=== PATIENT | male | born 1940 | race Caucasian/White ===

== ENCOUNTER 2019-02-07 05:10 | Day surgery (SDC) ==
--- NOTE | 2019-01-24 08:17 | EKG Report ---
Test Performed on : 01/24/2019 08:14:30 AM Test Reason : PAT Blood Pressure : / mmHG Vent. Rate : 090 BPM Atrial Rate : 090 BPM P-R Int : 152 ms QRS Dur : 090 ms QT Int : 368 ms P-R-T Axes : 041 -46 053 degrees QTc Int : 450 ms Normal sinus rhythm. Left anterior fascicular block Moderate voltage criteria for LVH, may be normal variant Nonspecific T wave abnormality Abnormal ECG No previous ECGs available Confirmed by Victoriano Swift MD ([id number]) on 01/25/2019 7:34:12 AM
[2019-01-24 08:30] LABS: URINE SOURCE CLEAN CATCH
[2019-01-24 08:49] LABS: BASO# 0.03 X1000 (0.0-0.2); BASO% 0.6 % (0.0-0.8); EOS# 0.06 X1000 (0.0-0.7); EOS% 1.1 % (0.0-10.0); HEMATOCRIT 45.2 % (42.0-52.0); HEMOGLOBIN 15.1 g/dL (14.0-18.0); IMM GRAN# 0.03 X1000 (0.0-0.04); IMM GRAN% 0.6 % (0.0-0.5); LYMPH# 0.67 X1000 (1.2-3.4); LYMPH% 12.8 % (20.5-51.1); MCH 34.2 PG (27-31); MCHC 33.4 g/dL (33-37); MCV 102.3 FL (81-99); MONO# 0.41 X1000 (0.11-0.59); MONO% 7.8 % (1.7-9.3); MPV 10.7 FL (7.4-10.4); NEUT# 4.04 X1000 (1.4-6.5); NEUT% 77.1 % (42.2-75.2); PLT 270 X1000 (130-400); RBC 4.42 XMIL (4.7-6.1); RDW 13.5 % (11.5-14.5); WBC 5.24 X1000 (4.8-10.8)
[2019-01-24 08:59] LABS: BILIRUBIN URINE NEGATIVE (NEGATIVE); BLOOD URINE SMALL (NEGATIVE); COLOR YELLOW; GLUCOSE URINE NEGATIVE (NEGATIVE); KETONE URINE TRACE mg/dL (NEGATIVE); LEUKOCYTES URINE NEGATIVE (NEGATIVE); NITRITE URINE NEGATIVE (NEGATIVE); PH URINE 5.5; PROTEIN URINE TRACE mg/dL (NEGATIVE); TURBIDITY URINE CLEAR (CLEAR); UROBILINOGEN URINE NORMAL (NORMAL)
[2019-01-24 09:03] LABS: UR EPITHELIAL CELLS <10 /HPF (<10); URINE BACTERIA NEGATIVE /HPF; URINE RBC <10 /HPF (<10); URINE WBC <10 /HPF (<10)
[2019-01-24 09:42] LABS: AGAP 12; BUN 26 mg/dL (8-22); CALCIUM 9.3 mg/dL (8.8-10.2); CHLORIDE 107 mmol/L (98-107); COSMO 294; ESTIMATED GFR > 60; GLUCOSE 140 mg/dL (70-104); POTASSIUM 4.7 mmol/L (3.5-5.1); SODIUM 144 mmol/L (136-145); TCO2 25 mmol/L (25-35)
[2019-01-24 10:08] LABS: INR 1.14; PROTIME 14.7 Seconds (11.0-16.0); PTT 28.6 Seconds (22.3-41.8)
[2019-02-07] MEDS ORDERED: PEPCID ONE (05:41)
[2019-02-07] MEDS ORDERED: CELEBREX ONE (05:41)
[2019-02-07] MEDS ORDERED: REGLAN ONE (05:41)
[2019-02-07] MEDS ORDERED: LYRICA ONE (05:41)
[2019-02-07] MEDS ORDERED: COLACE ONE (05:41)
[2019-02-07] MEDS ORDERED: KEFZOL 1 GM/D5W 2 GM/100 ML IVPB ONE (05:42)
[2019-02-07] MEDS ORDERED: LR 1,000 ML ONE (05:42)
[2019-02-07] MEDS ORDERED: VANCOMYCIN ONE (06:30)
[2019-02-07] MEDS ORDERED: TORADOL ONE (06:30)
[2019-02-07] MEDS ORDERED: DURAMORPH ONE (06:30)
[2019-02-07] MEDS ORDERED: SENSORCAINE 0.5%-EPI 1:200,000 ONE (06:30)
[2019-02-07] MEDS ORDERED: NEOSPORIN G.U. IRRIGANT ONE (06:31)
[2019-02-07] MEDS ORDERED: EXPAREL 1.3% ONE (06:31)
[2019-02-07] MEDS ORDERED: SODIUM CHLORIDE 0.9% ONE (06:31)
[2019-02-07] MEDS ORDERED: XYLOCAINE-MPF 2% ONE (06:32)
[2019-02-07] MEDS ORDERED: DIPRIVAN 1% ONE (06:44)
[2019-02-07] MEDS ORDERED: FENTANYL ONE (07:13)
[2019-02-07] MEDS: CYKLOKAPRON 1,000 MG/NS 2,000 MG/200 ML IVPB ONE ×2 (07:15→08:36)
[2019-02-07 07:57] LABS: URINE SOURCE CATH
[2019-02-07 08:15] LABS: BILIRUBIN URINE NEGATIVE (NEGATIVE); BLOOD URINE TRACE (NEGATIVE); COLOR YELLOW; GLUCOSE URINE NEGATIVE (NEGATIVE); KETONE URINE NEGATIVE (NEGATIVE); LEUKOCYTES URINE NEGATIVE (NEGATIVE); NITRITE URINE NEGATIVE (NEGATIVE); PROTEIN URINE NEGATIVE (NEGATIVE); SP GRAVITY URINE 1.017; TURBIDITY URINE CLEAR (CLEAR); UROBILINOGEN URINE NORMAL (NORMAL)
[2019-02-07 08:16] LABS: UR EPITHELIAL CELLS <10 /HPF (<10); URINE BACTERIA NEGATIVE /HPF; URINE RBC <10 /HPF (<10); URINE WBC <10 /HPF (<10)
--- NOTE | 2019-02-07 09:13 | OPERATIVE NOTE ---
PROCEDURE DATE: 02/07/2019 PREOPERATIVE DIAGNOSIS: Degenerative arthritis left knee. POSTOPERATIVE DIAGNOSIS: Degenerative arthritis left knee. PROCEDURE: Left total knee arthroplasty with DePuy Attune size 7 posterior stabilized femur, size 7 tibial tray, a 7 mm rotating platform tibial insert, and a 41 mm medialized anatomic patella. SURGEON: Dr. Sang Landis 1ST FELT STRIP FINISHER: CÉSAR Mak who was necessary for proper retraction and manipulation of the extremity during the case. SECOND FELT STRIP FINISHER: Afshin Murphy RN. ANESTHESIA: General. IV FLUIDS: 1500 mL lactated Ringer's. ESTIMATED BLOOD LOSS: 25 mL. TOTAL TOURNIQUET TIME: 85 minutes at 300 mmHg. COMPLICATIONS: None. INDICATIONS: The patient is a pleasant 78-year-old male with a chronic history of pain and discomfort of his left knee. His pain has progressed to affect his activities of living. X-rays revealed significant degenerative osteoarthritis, and the recommendation to proceed with left total knee arthroplasty was offered. Risks and benefits of surgery were explained, including the risks of anesthesia, , bleeding, infection, failure to relieve pain, postoperative stiffness, nerve injury, blood clots, and other imponderables. All questions answered. Patient and family wished to proceed with surgery. DETAILS OF PROCEDURE: The patient was taken to the operating room and placed supine on operating table. Once adequate anesthesia was obtained, the patient's left lower extremity was subsequently prepped and draped in usual sterile fashion. Esmarch was used to exsanguinate left lower extremity. The tourniquet was inflated to 300 mmHg. A standard anterior incision made with skin knife. Medial and lateral skin envelopes were developed. Standard medial parapatellar arthrotomy was then performed. Patella fat pad was excised. Superior traction was then placed. Approximately 1 cm anterior to the PCL insertion, starting reamer was passed. Intramedullary guide with a distal femoral cutting block was pinned in position. A starting reamer was passed approximately 1 cm anterior to the PCL insertion. An intramedullary guide with a distal femoral cutting block was pinned in position. Distal femoral cut was then performed. A sizing block was placed and measured to a size 7. Corresponding pins were placed. A size 7 chamfer cutting block was placed in position. Anterior, posterior, and chamfer cuts were then made. Attention then turned to the proximal tibia where further resection of the ACL and PCL was performed. Using the extramedullary guide, the proximal tibia cutting block was pinned in position. It had good alignment confirmed with the alignment catia. The proximal tibia was then resected. Medial and lateral menisci were excised. A curved osteotome was used to remove the posterior osteophytes off the distal femur. A spacer block was then placed. It had good soft tissue balance in both flexion and extension. Attention turned back to the proximal tibia where a size 7 tibial tray appeared to be the correct size. This was pinned in position. This was followed by a central reamer and a fin punch. A box cutting guide was then placed on the distal femur. A box cut was performed. A size 7 femoral component was then placed. Two lug holes were drilled. A trial tibial insert was then placed and good soft tissue balancing. The patella was everted and resected in standard fashion. A size 41 appeared to be the correct size. Corresponding holes were drilled. The trial patella component was then placed, and had good patellofemoral tracking. The trial components were then removed. Copious irrigation was then performed with antibiotic pulsatile lavage. Vancomycin was mixed with cement on the back table. Sequential cementing was then performed first with the tibial tray and excess cement was removed with a Osteen followed by the femoral component,. Excess cement was removed with a Osteen followed by trial tibial insert in full extension. Axial loading was maintained while cement cured. The patella component was cemented in a standard fashion. Patella clamp was placed. While cement was curing, Exparel was placed in deep soft tissue, as well as the subcutaneous tissue. After cement had cured, peripheral cement was removed with a small osteotome. The 7 mm rotating platform tibial insert appeared to be the correct size. The trial insert was removed. Exparel was placed in the posterior capsule. Wound was copiously irrigated once again. A 7 mm rotating platform tibial insert was then placed. The knee was then carried through range of motion. It had good range of motion, and good soft tissue balancing, and good patellofemoral tracking. A 1/8 Hemovac drain was placed, and was not sewn in. Copious irrigation performed once again with antibiotic pulsatile lavage. #1 Vicryl was used to repair the arthrotomy followed by 2-0 Vicryl for repair to subcutaneous tissue and skin arthur. Adaptic, sterile 4 x 4's, Webril, cryo unit, and Dennis wrap applied to the left lower extremity. Patient tolerated the procedure well, and was transferred to the recovery room in stable condition. cc: Sang Landis MD
[2019-02-07] MEDS ORDERED: NS 1,000 ML ONE (09:14)
[2019-02-07] MEDS: DILAUDID ONE ×4 (09:37→10:00)
--- NOTE | 2019-02-07 10:07 | Diag Imaging Result Doc PS360 ---
EXAM: KNEE 1-2 VIEWS-LEFT 02/07/2019 HISTORY: post op total knee TECHNIQUE: Two views COMMENT: There is a total knee arthroplasty. The prosthesis appears to be intact and there is no evidence of acute fracture or dislocation. IMPRESSION: Postsurgical change. Electronically signed by Kin Graves 02/07/2019 10:05 AM
[2019-02-07] MEDS ORDERED: OXY IR ONE (10:11)
[2019-02-07] MEDS ORDERED: MORPHINE IV PRN ×3 (11:00)
[2019-02-07] MEDS ORDERED: OXY IR PO PRN (11:00)
[2019-02-07] MEDS ORDERED: MILK OF MAGNESIA PO PRN (11:00)
[2019-02-07] MEDS ORDERED: ZOFRAN PO PRN (11:00)
[2019-02-07] MEDS ORDERED: XANAX PO PRN (15:55)
[2019-02-07] MEDS: NS 1,000 ML IV SCH ×2 (16:28→19:56)
[2019-02-07] MEDS: TYLENOL PO SCH ×3 (16:30→22:26)
[2019-02-07] MEDS: KEFZOL 2 GM/D5W 2 GM/50 ML IVPB IV SCH ×2 (16:37→22:26)
[2019-02-07] MEDS: OXY IR PO PRN (16:37)
[2019-02-07] MEDS: LEXAPRO PO SCH (19:57)
[2019-02-07] MEDS: PERIDEX MT SCH (19:57)
[2019-02-07] MEDS: COLACE PO SCH (19:57)
[2019-02-08] MEDS: COLACE PO SCH ×2 (02:12→09:31)
[2019-02-08] MEDS: LEXAPRO PO SCH (02:13)
[2019-02-08] MEDS: NS 1,000 ML IV SCH (02:13)
[2019-02-08] MEDS: PERIDEX MT SCH ×2 (02:14→09:30)
[2019-02-08] MEDS: OXY IR PO PRN ×2 (02:59→07:33)
[2019-02-08] MEDS ORDERED: RITALIN PO SCH (05:00)
[2019-02-08] MEDS ORDERED: NIACIN PO SCH (05:00)
[2019-02-08] MEDS: TYLENOL PO SCH (05:18)
[2019-02-08] MEDS: IMURAN PO SCH ×2 (05:23→08:27)
[2019-02-08] MEDS ORDERED: XARELTO PO SCH (06:00)
[2019-02-08 06:02] LABS: HEMATOCRIT 38.2 % (42.0-52.0); HEMOGLOBIN 12.8 g/dL (14.0-18.0)
--- NOTE | 2019-02-08 06:09 | ORTHOPAEDICS PROGRESS NOTE ---
DATE: 02/08/2019 SUBJECTIVE: The patient is a pleasant 78-year-old male who is 1 day status post left total knee arthroplasty. The patient is currently resting comfortably. PHYSICAL EXAMINATION: The patient's left lower extremity wound looks good. There is no sign or symptom of infection. The calf is soft. He has active dorsiflexion and plantarflexion, able to perform a straight leg raise. LABS: His labs are pending. IMPRESSION: Postoperative day #1 status post left total knee arthroplasty. PLAN: At this point, we will begin mobilization with Physical Therapy and plan on discharging home later today. We will arrange for home physical therapy. The patient will follow up in the office on 02/19/2019. cc: Sang Landis MD
[2019-02-08 06:25] LABS: AGAP 8; BUN 25 mg/dL (8-22); CALCIUM 8.4 mg/dL (8.8-10.2); CHLORIDE 108 mmol/L (98-107); COSMO 284; ESTIMATED GFR > 60; GLUCOSE 133 mg/dL (70-104); POTASSIUM 4.5 mmol/L (3.5-5.1); SODIUM 139 mmol/L (136-145); TCO2 23 mmol/L (25-35)
[2019-02-08 07:45] VITALS: BP 151/76
[2019-02-08] MEDS ORDERED: PROSCAR PO SCH (09:00)
[2019-02-08] MEDS ORDERED: VITAMIN D PO SCH (09:00)
== END 2019-02-08 11:38 | disposition home or self-care (01) ==
LOC: 4N 05:10 → OR 05:10
PROVIDERS: ATTEND Orthopaedic Surgery Adult Reconstructive Orthopaedic Surgery